=== PATIENT | female | born 1945 | race Caucasian/White ===

== ENCOUNTER → 2016-10-05 | Outpatient (CLI) | payer OTHER ==
[~2016-10-05] MED LIST: AMOX TR-K CLV1 EAC4; FLONASE 0.05%50 MCG; HYDROCODONE-AC120 ML PO; PROAIR HFA8.5 GM
== END ==
LOC: RAD 12:29
DX: I49.9 Cardiac arrhythmia, unspecified (principal); I48.91 Unspecified atrial fibrillation; R10.2 Pelvic and perineal pain

== ENCOUNTER → 2018-10-04 | Outpatient (CLI) | payer OTHER ==
[~2018-10-04] VITALS: Ht 165.1 cm; Wt 65.8 kg
[~2018-10-04] MED LIST changes: +ALEVE220 MG PO; +TRAMADOL 50 MG50 MG PO
--- NOTE | ~2018-10-04 | HPC ---
[facility] [address] [place] [address] PAIN MANAGEMENT CONSULTATION Name: TI LPOEZ Room #: REG YOANNA Aurelia#: [id number] Admission: 10/04/18 ������������������ Attend Phys: Laura Torres MD Discharge: ������������������ Date of : 47 Report #: [id number] THIS REPORT FOR: //name// CC: Edison Torres DATE OF SERVICE: 10/04/2018 CHIEF COMPLAINT: Pain in the neck down in the right arm and shoulder. HISTORY OF PRESENT ILLNESS: The patient is a 73-year-old female who has been referred to the Pain Clinic for evaluation of neck and shoulder pain. She noticed in the latter portion of August pain and discomfort in her arm. States that she awoke with pain and discomfort, which has been quite problematic. She has had no trauma. Notes that when she was lying on the right side pain was worse. There is some numbness in her thumb. Pain has been quite excruciating. She has been generally sleep deprived since the onset of this pain. She has not had a good night sleep since 09/23/2018. She had pain in the past. She had a few hydrocodone tablets, which were left over. She used this medication. This causes significant amount of itching. She has used tramadol as well as Medrol Dosepak. During the day, her pain is somewhat tolerable, but at night it becomes really problematic. She tries to prop herself up with pillows. She has been sleeping in the chair. Because of sleeping in the chair she has noted some increased pain in her hip and it goes down her leg. TRAMADOL caused her to feel "goofy." She has been without significant sleep/restful night over the last 2 weeks. Describes it as continuous, steady, shooting, aching, intermittent, throbbing and sharp. She rates it as a 7/10. She denies any similar pain. PAST MEDICAL HISTORY: Joint disease/arthritis, osteoarthritis, shingles in 2006. The patient had pericarditis in 2002. ALLERGIES: SULFA, NABUMETONE DIARRHEA AND HYDROCODONE ITCHING. PAST SURGICAL HISTORY: None. SOCIAL HISTORY: She is retired. REVIEW OF SYSTEMS: Generally good health, recent weight change, fatigue, weakness, wears glasses. MEDICATIONS: Naprosyn 220 mg q. 8 hours p.r.n., tramadol 50 mg. ADDENDUM: PAIN CLINIC ASSESSMENT AND PQRS: 1. The patient has osteoarthritis, has some generalized osteoarthritic changes. [facility] [address] [place] [address] PAIN MANAGEMENT CONSULTATION Name: TI LOPEZ Room #: REG [facility]#: [id number] Admission: 10/04/18 ������������������ Attend Phys: Laura Torres MD Discharge: ������������������ Date of : 47 Report #: [id number] 2. The patient is not being treated for rheumatoid arthritis. 3. Pain intensity is 7/10. 4. Fall risk. The patient has not fallen in the last 3 months. 5. Blood thinner. The patient is not on a blood thinning medication. 6. Hypertension. The patient is not being treated for hypertension. 7. Opioids greater than 6 weeks. The patient is not on a chronic opioid medication. 8. Functional assessment tool, 60/70. 9. Recreational drug use. The patient denies use of recreational drugs. 10. Tobacco: The patient has never smoked. 11. Alcohol: The patient denies frequent use of alcoholic beverages. PHYSICAL EXAMINATION: GENERAL: The patient is a well-developed, well-nourished white female. She appears her stated age. She is alert and oriented x 3. Her affect is appropriate. Speech is fluent. Height is 5 feet 5 inches, weight is 145 pounds, and BMI is 24.1. VITAL SIGNS: Blood pressure is 151/70, pulse is 98, respiratory rate is 16, and room air saturation 98%. HEENT: Normocephalic, atraumatic. Extraocular eye muscles intact. Sclerae nonicteric. Mucous membranes are moist. NECK: Without adenopathy or JVD. The patient has pain and discomfort in her neck with pain, which is radiating down to the right arm from the neck to her shoulder into the right forearm with numbness and tingling down into her fingers and numbness in her thumb. HEART: Regular rate. S1, S2. LUNGS: Clear to auscultation without rhonchi. ABDOMEN: Nontender. Bowel sounds present. MUSCULOSKELETAL: Deep tendon reflexes in the upper extremity, +1 in the left and right biceps. Muscle strength on the left is 5-/5 and 4+/5 on the right for sander portable machine strength. The patient is without significant scoliosis, kyphosis, or lordosis. Lower extremity muscle strength is judged to be 5-/5 for the major muscle groups in the lower extremity. Deep tendon reflexes are difficult to appreciate the patient's inability to relax. IMPRESSION: 1. Cervical radiculopathy involving the right arm with pain radiating down in the C6-C7 dermatomal distribution. 2. Joint disease/arthritis. 3. Osteoarthritis. 4. Shingles in 2006. 5. The patient had pericarditis in 2002. RECOMMENDATIONS: We have discussed treatment options with the patient. Risks and benefits of a cervical epidural steroid injection were discussed. Possible complications of the procedure, which could include but are not limited to [facility] [address] [place] [address] PAIN MANAGEMENT CONSULTATION Name: LOPEZTI A Room #: REG KHARI Aurelia#: [id number] Admission: 10/04/18 ������������������ Attend Phys: Laura Torres MD Discharge: ������������������ Date of : 47 Report #: [id number] infection, worsening of pain, no improvement in pain, nerve damage, paralysis, and spinal headache were discussed. The patient elects to proceed. PROCEDURE NOTE: The patient was taken to the procedure area. She was then assisted in getting on the examination table. A pillow was placed under shoulders to bolster and improve positioning. Fluoroscopy using anterior, posterior as well as lateral viewing were implemented. The midline area at C7-T1 interspace was identified. A 25-gauge needle was then advanced into this area with local anesthetics 0.25% bupivacaine to numb the area. A 17-gauge Tuohy using a midline approach with a right paramedian approach was undertaken. No CSF, heme, or paresthesia was noted. Aspiration was negative. A total of 120 mg triamcinolone was injected. The patient tolerated the procedure well. There were no complications. Her pain decreased to 0 at the time of discharge. She will follow up in the future. The patient's sister was with her and drove her home. ��������������������������������������������� ���������������������������������������� By: ��������������������������������������������� [id number] Laura Torres MD /nt
[2018-10-04 09:45] VITALS: BP 151/70
--- NOTE | 2018-10-04 09:45 | NUR ---
Pain Clinic Assessment: 1. History of Osteoarthritis: GENERALIZED History of Rheumatoid Arthritis: NO 2. Height: 5 ft. 5 in. 165.1 cm. Weight: 145.0 lb. oz. 65.772 kg. Patient's BMI: 24.1 3. Vital Signs: BP: 151/70 Pulse: 98 Resp: 16 Temp: 02 Sat: 100 ECG Mon: 4. Pain Intensity: 7 5. Fall Risk: Dizziness: N Needs help standing or walking: N Fallen in the last 3 months: N Fall risk comments: 6. Patient on Blood Thinner: None 7. History of Hypertension: N 8. Opioid Therapy greater than 6 weeks: N Opiate Contract Signed: 9. Risk Assessment Tool Provided: 10. Functional Assessment Tool: 11. Recreational Drug Use: Never Drug Type: Tobacco Use: Never Smoker Tobacco Type: Amount or Packs/day: How Many Years: Alcohol Use: No Frequency: Quant:
--- NOTE | 2018-10-10 13:40 | NUR ---
10/10/18 CALLED PATIENT REGARDING HER IDALIA-REPORTS THAT SHE FELT GOOD THE DAY OF THE INJECTION BUT THE NEXT DAY 10/05/18 SHE STATES HER PAIN WAS PURE HELL. SHE REFERRED BACK TO OUR DISCHARGE AND REALIZED THAT SOMETIMES MORE PAIN IS NORMAL. IT TAKES A FEW DAYS-TODAY HER PAIN IS TOLERABLE-A 20 HOUR PERIOD OF SIGNIFICANT PAIN IS FOLLOWED BY 20 HOURS OF BEARALE DISCOMFORT. TRAMADOL/NSAIDS NOT HELPING. SHE HAS ANOTHER APPOINTMENT ON 10/25/18-EXPLAINED ANOTHER INJECTION MAY KNOCK HER SYMPTOMS DOWN MORE-REASSURED HER WE WOULD HELP HER TO FELL BETTER. ALSO RECOMMENDED ICE/HEAT ALTERNATION.CS
== END | disposition home or self-care (01) ==
LOC: PAIN 06:51
DX: M54.12 Radiculopathy, cervical region (principal); M19.90 Unspecified osteoarthritis, unspecified site; Z98.890 Other specified postprocedural states; Z88.2 Allergy status to sulfonamides; Z88.8 Allergy status to other drugs, medicaments and biological substances; Z79.899 Other long term (current) drug therapy

== ENCOUNTER → 2018-10-23 | Outpatient (CLI) | payer OTHER | LOC: RAD 15:33 | DX: I48.91 Unspecified atrial fibrillation (principal) ==

== ENCOUNTER → 2018-10-25 | Outpatient (CLI) | payer OTHER ==
[~2018-10-25] VITALS: Ht 165.1 cm; Wt 67.0 kg
--- NOTE | ~2018-10-25 | HPC ---
[facility] [address] [place] [address] PAIN MANAGEMENT CONSULTATION Name: TI LOPEZ [id number] Admission: 10/25/18 ������������������ Attend Phys: Laura Torres MD Discharge: ������������������ Date of : 47 Report #: [id number] THIS REPORT FOR: //name// CC: Edison Torres DATE OF SERVICE: 10/25/2018 CHIEF COMPLAINT: Right shoulder pain has improved. HISTORY: The patient is a 73-year-old female who was seen in the pain clinic because of cervical radiculopathy. She had been experiencing pain since August. It involved her right arm. There is numbness, tingling and sensory changes. She underwent a cervical epidural steroid injection. She did note some improvement initially. The pain started to increase over the next few days. It waxed and waned over the next 48 hours. She then noticed some decreased pain and discomfort. She had pain was so severe she took a number of tramadol tablets. It was felt that the tramadol tablets were not very effective upon the pain. Her pain has now decreased. She has bought a new pillow (my pillow). She finds that this helps to hold her neck in the best position. She slept in her bed for the first time in a while last night. She feels that things are finally crossed over from a painful state to one which is more normal. ALLERGIES: SULFA, NABUMETONE CAUSE DIARRHEA, HYDROCODONE, CAUSES ITCHING. PAIN CLINIC ASSESSMENT/PQRS: 1. The patient has osteoarthritis, which is generalized. She has not been treated for rheumatoid arthritis. Height 5 feet 5 inches, weight 147 pounds, BMI is 26.4. 2. Vital signs: Blood pressure 151/67, pulse 110, respiratory rate 14. Room air saturation 100%. 3. Pain intensity is 1/10. 4. Fall history; The patient has not fallen in the last 3 months. 5. Blood thinner. The patient is not on a blood thinning medication. 6. Hypertension. The patient is not being treated for hypertension. 7. Opioids. The patient is not on opioid regimen, but has used tramadol. 8. Risk assessment tool, low for opioid use. 9. Functional assessment tool. 10. Recreational drug use. The patient denies. 11. Tobacco: The patient has never smoked. 12. Alcoholic beverages: The patient denies frequent use of alcoholic beverages. PHYSICAL EXAMINATION: GENERAL: The patient is a well-developed, well-nourished white female. Appears her stated age. She is alert and oriented x 3. Her affect is appropriate. [address] [address] PAIN MANAGEMENT CONSULTATION Name: TI LOPEZ Room #: REG [facility] M..#: [id number] Admission: 10/25/18 ������������������ Attend Phys: Laura Torres MD Discharge: ������������������ Date of : 47 Report #: [id number] Speech is fluent. HEENT: Normocephalic, atraumatic. Extraocular eye muscles intact. Sclerae nonicteric. Mucous membranes are moist. NECK: Without adenopathy or JVD. She has noticed an improvement in her arm pain. Less pain and discomfort in her right shoulder. Numbness and tingling has subsided in her hands. HEART: Regular rate. S1, S2. LUNGS: Clear to auscultation without rhonchi or rales. ABDOMEN: Nontender. Bowel sounds present. MUSCULOSKELETAL: Upper extremity muscle strength is judged to be 5-/5 for the left side and 5-/5 for the right side with patient ambassador strength. Lower extremity muscle strength judged to be 5-/5 for the major muscle groups in the lower extremity. IMPRESSION: 1. Cervical radiculopathy improved on the right side with pain that has ameliorated. 2. Joint disease/arthritis. 3. Osteoarthritis. 4. Shingles in 2006. 5. The patient has pericarditis in 2002. RECOMMENDATIONS: We discussed treatment options with the patient. At this juncture, she feels that things are going reasonably well. She is feeling better, knowing that her pain has decreased. She states that the pain was quite terrible and cause quite a bit of anguish and grief. She is happy that the pain has improved. She at this juncture feels that her current status is stable. She does not feel an injection or additional medications are needed at this juncture. She will follow up in the future as needed. Overall, she is happy with the way that things have turned out. Hopefully, her pain relief will continue forever. We would like to thank you for letting us participate in her care. We hope she continues to improve. ��������������������������������������������� ���������������������������������������� By: ��������������������������������������������� [id number] Laura Torres MD /tanika
[2018-10-25 11:18] VITALS: BP 151/67
--- NOTE | 2018-10-25 11:38 | NUR ---
Pain Clinic Assessment: 1. History of Osteoarthritis: GENERALIZED History of Rheumatoid Arthritis: NO 2. Height: 5 ft. 5 in. 165.1 cm. Weight: 147.6 lb. oz. 66.951 kg. Patient's BMI: 24.6 3. Vital Signs: BP: 151/67 Pulse: 110 Resp: 14 Temp: 02 Sat: 100 ECG Mon: 4. Pain Intensity: 1 5. Fall Risk: Dizziness: N Needs help standing or walking: N Fallen in the last 3 months: N Fall risk comments: 6. Patient on Blood Thinner: None 7. History of Hypertension: N 8. Opioid Therapy greater than 6 weeks: N Opiate Contract Signed: 9. Risk Assessment Tool Provided: 10. Functional Assessment Tool: 11. Recreational Drug Use: Never Drug Type: Tobacco Use: Never Smoker Tobacco Type: Amount or Packs/day: How Many Years: Alcohol Use: No Frequency: Quant:
== END ==
LOC: PAIN 06:54
DX: M54.12 Radiculopathy, cervical region (principal); M19.90 Unspecified osteoarthritis, unspecified site; B02.29 Other postherpetic nervous system involvement; I31.9 Disease of pericardium, unspecified; Z79.899 Other long term (current) drug therapy

== ENCOUNTER → 2018-12-20 | Outpatient (CLI) | payer OTHER ==
[~2018-12-20] VITALS: Ht 162.6 cm; Wt 64.9 kg
[~2018-12-20] MED LIST changes: +AMITRIPTYLINE H25 M2 PO; +PERCOCET PO
[2018-12-20 13:22] VITALS: BP 133/65
--- NOTE | 2018-12-20 13:27 | NUR ---
Pain Clinic Assessment: 1. History of Osteoarthritis: GENERALIZED History of Rheumatoid Arthritis: NO 2. Height: 5 ft. 4 in. 162.6 cm. Weight: 143.0 lb. oz. 64.864 kg. Patient's BMI: 24.5 3. Vital Signs: BP: 133/65 Pulse: 105 Resp: 16 Temp: 02 Sat: 99 ECG Mon: 4. Pain Intensity: 10 5. Fall Risk: Dizziness: N Needs help standing or walking: N Fallen in the last 3 months: N Fall risk comments: 6. Patient on Blood Thinner: None 7. History of Hypertension: N 8. Opioid Therapy greater than 6 weeks: N Opiate Contract Signed: 9. Risk Assessment Tool Provided: 10. Functional Assessment Tool: 11. Recreational Drug Use: Never Drug Type: Tobacco Use: Never Smoker Tobacco Type: Amount or Packs/day: How Many Years: Alcohol Use: No Frequency: Quant:
== END | disposition home or self-care (01) ==
LOC: PAIN 07:02
DX: M54.12 Radiculopathy, cervical region (principal); G89.29 Other chronic pain; Z88.2 Allergy status to sulfonamides; Z88.8 Allergy status to other drugs, medicaments and biological substances; Z79.899 Other long term (current) drug therapy; Z79.891 Long term (current) use of opiate analgesic

== ENCOUNTER 2019-01-08 18:03 | Inpatient (IN) | payer OTHER ==
[~2019-01-08] VITALS: Ht 162.6 cm; Wt 64.4 kg
--- NOTE | ~2019-01-08 | D ---
[facility] [place] [address] DISCHARGE SUMMARY Name: JOHNTI Jean Room #: 219-P [facility] IN M.R.#: [id number] Admission: 01/08/19 ������������������ Attend Phys: Marjan Unger Discharge: 01/09/19 ������������������ Date of : 47 Report #: [id number] THIS REPORT FOR: //name// CC: Edison Lopez DATE OF SERVICE: 01/09/2019 FINAL DIAGNOSES: 1. Abdominal mass. 2. Pelvic retroperitoneal and inguinal lymphadenopathy. 3. Deep venous thrombosis of the right leg. 4. Anemia of chronic disease. 5. Severe protein-calorie malnutrition. HOSPITAL COURSE: The patient was admitted with abdominal distention, discomfort and leg swelling. CT of the abdomen showed a mass at the ascending colon, external to the colon wall. There were other areas of enlargement of the uterus and potential mass in the pelvic area. There was some degree of bilateral hydronephrosis and hydroureter, felt related to a uterine mass. There was small amount of ascites. There was significant adenopathy in the abdomen and inguinal area. Doppler ultrasound of the legs for edema revealed no DVT on the left, but a DVT, partially occlusive in the right femoral vein, extending to the right saphenous vein. She was seen in consultation by the GI and Surgery Services. She related a history of cervical cancer 2 years ago, diagnosed to Dr. Horn. This was new information to our service. She apparently elected not to have any treatment. It is most likely that she has spread of her cervical cancer. At this point, it did not appear surgery would be beneficial. She did not want to pursue any further testing. DISPOSITION: She is discharged to home with diet and activity as tolerated. She has been provided referral information regarding hospice services. She will follow up with Dr. Lopez next week. A prescription for Xarelto 15 mg twice a day has been called in by the nursing staff. Her prognosis is poor. ��������������������������������������������� ���������������������������������������� By: ��������������������������������������������� [id number] Clarke Abbott MD /nt
[2019-01-08 19:20] VITALS: BP 125/69
[2019-01-08] MEDS ORDERED: KLOR-CON 1010 MEQ PO (20:01)
[2019-01-08] MEDS ORDERED: LASIX 20 MG TAB20 MG PO (20:02)
[2019-01-08 21:52] LABS: ABSOLUTE NEUTROPHILS 14.6 thou/uL (1.4-8.2); BASOPHILS 0.5 % (0.0-2.0); EOSINOPHILS 0.6 % (0.0-3.0); HEMATOCRIT 29.4 % (37.0-47.0); HEMOGLOBIN 9.3 gm/dL (12.0-15.0); LYMPHOCYTES 6.2 % (24.0-44.0); MCH 23.6 pg (26.0-34.0); MCHC 31.7 g/dL (28.0-37.0); MCV 74.3 fL (80.0-100.0); MONOCYTES 4.5 % (1.0-8.0); PLATELET COUNT 577 thou/uL (150-400); POLYS 88.2 % (36.0-66.0); RBC 3.96 mil/uL (4.20-5.00); WBC 16.6 thou/uL (4.0-11.0)
[2019-01-08 22:04] LABS: % SATURATION 5 % (20-39); IRON 10 ug/dL (50-170); TIBC 222 ug/dL (250-450)
[2019-01-08 22:06] LABS: ALBUMIN 2.3 g/dL (3.4-5.0); CALCIUM 8.8 mg/dL (8.5-10.1); CREATININE 0.9 mg/dL (0.6-1.0); POTASSIUM 4.6 mmol/L (3.5-5.1); TOTAL BILIRUBIN 0.3 mg/dL (<0.1-1.0); TOTAL PROTEIN 7.1 g/dL (6.4-8.2)
[2019-01-08 23:15] VITALS: BP 129/64
[2019-01-09 03:50] VITALS: BP 128/54
--- NOTE | 2019-01-09 05:02 | NUR ---
PATIENT DIRECTLY ADMITTED FROM DR. LEE'S OFFICE. ALERT AND ORIENTED X4, NO COMPLAINTS OF PAIN. SINUS RHYTHM TO SINUS TACHYCARDIA ON LOAD DROPPER. ON ROOM AIR, SHORTNESS OF BREATH WITH INCREASED ACTIVITY. ON HEART HEALTHY DIET. VOIDS INDEPENDENTLY. UP WITH STANDBY ASSISTANCE. SKIN INTACT. COMPLETED CT SCAN OVERNIGHT. UNEVENTFUL NIGHT, COMPLETED CT SCAN. NO SIGNS OF ACUTE DISTRESS NOTED AT THIS TIME. WILL CONTINUE TO MONITOR.
[2019-01-09 06:55] VITALS: BP 148/61
[2019-01-09 08:40] VITALS: BP 147/58
--- NOTE | 2019-01-09 10:16 | NUR ---
met with patient who was direct admit from Dr Garcia office, she reports swelling of legs. 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 patient lives alone, independent with cooking, cleaning and all adls. She reports she sometimes walks to grocery store. At dc she plans home independently, has friend at bedside to transport home. Casemgt following anticipate no needs at dc.
[2019-01-09 12:01] VITALS: BP 157/59
[2019-01-09 15:13] VITALS: BP 157/59
--- NOTE | 2019-01-10 11:10 | H ---
[facility] [place] [address] HISTORY AND PHYSICAL Name: JOHNTI Jean Room #: 219-P [facility] IN M.R.#: [id number] Admission: 01/08/19 ������������������ Attend Phys: Marjan Unger Discharge: 01/09/19 ������������������ Date of : 47 Report #: [id number] THIS REPORT FOR: //name// CC: Edison Lopez DATE OF SERVICE: 01/08/2019 CHIEF COMPLAINT: Abdominal pain and leg swelling. HISTORY OF PRESENT ILLNESS: The patient is a 73-year-old female who was admitted through the office for evaluation of persistent progressive leg edema along with new development of abdominal pain, distention and bloating. She said for the last 2-3 months, she has had intermittent swelling of her legs. Initially, Lasix seemed to resolve the issue and she had lab work she says sometime in October that was unremarkable from the office. However, the edema returned once she discontinued Lasix. Now in the last 2 weeks, edema has persisted and is not responding to diuretic treatment. In the recent weeks, she has also noted some nonspecific right-sided abdominal pain, but also new development of abdominal distention and bloating. She was admitted for evaluation. PAST MEDICAL HISTORY: None. PAST SURGICAL HISTORY: None. FAMILY HISTORY: Noncontributory. SOCIAL HISTORY: She was living at home. No known chronic alcohol or tobacco use. ALLERGIES: SULFA, HYDROCODONE AND TRAMADOL. MEDICATIONS: Lasix and potassium. REVIEW OF SYSTEMS: She denies headache, chest pain, shortness of breath, nausea, vomiting, diarrhea, constipation, dysuria or syncope. PHYSICAL EXAMINATION: VITAL SIGNS: Temperature 37.1, pulse 116, respirations 16, blood pressure 147/58 and O2 sat 100% on room air. GENERAL: She is awake and alert, in no distress. HEAD AND NECK: Unremarkable. LUNGS: Clear. HEART: Regular. ABDOMEN: Soft, distended, slightly tender right sided. No rebound or guarding. Normal bowel sounds. [address] [address] HISTORY AND PHYSICAL Name: JOHNTI A Room #: 219[facility] ..#: [id number] Admission: 01/08/19 ������������������ Attend Phys: Marjan Unger Discharge: 01/09/19 ������������������ Date of : 47 Report #: [id number] EXTREMITIES: With 2+ edema below the knees. LABORATORY DATA: White count was 16, hemoglobin 9 and MCV was 74. Albumin 2.3. CT of the abdomen shows enlarged pelvic and retroperitoneal lymph nodes with an enlarged uterus and cervix. There also appears to be a mass near the ascending colon. There is also mild bilateral hydronephrosis and hydroureter and small amount of ascites with bilateral inguinal adenopathy. ASSESSMENT: 1. Intra-abdominal mass. 2. Pelvic lymphadenopathy. 3. Microcytic anemia. 4. Severe protein-calorie malnutrition. 5. Lymphedema due to the above. PLAN: I have asked the surgical and GI team to assess her for a procedural biopsy to try to establish a diagnosis of what appears to be a malignant process. At this point, with a normal creatinine, we will just have to observe her hydronephrosis, but this is probably tumor related. Ultrasound to rule out a DVT will be ordered as well. ��������������������������������������������� <ELECTRONICALLY SIGNED> ���������������������������������������� By: Clarke Abbott MD ��������������������������������������������� 01/10/19 1110 1058 [id number] Clarke Abbott MD /nt
== END 2019-01-09 18:01 | disposition home or self-care (01) | DRG 299 ==
LOC: 2N 18:03
PROVIDERS: ADMIT Internal Medicine
DX: I82.411 Acute embolism and thrombosis of right femoral vein (principal); E43 Unspecified severe protein-calorie malnutrition; R19.00 Intra-abdominal and pelvic swelling, mass and lump, unspecified site; R59.1 Generalized enlarged lymph nodes; D63.8 Anemia in other chronic diseases classified elsewhere; D50.9 Iron deficiency anemia, unspecified; Z85.41 Personal history of malignant neoplasm of cervix uteri; Z68.24 Body mass index [BMI] 24.0-24.9, adult; Z79.899 Other long term (current) drug therapy
CPT/HCPCS: 10081